=== PATIENT | female | born 1970 | race Caucasian/White ===

== ENCOUNTER 2016-11-09 07:19 | Emergency (ER) | payer OTHER ==
[2016-11-09 07:24] VITALS: RESP 16; TEMP 97.7; O2SAT 98
--- NOTE | 2016-11-09 07:25 | EDPHY ---
H & P Stated Complaint: Right lower quad pain since this am Time Seen by Provider: 11/09/16 07:25 - Medical/Surgical History Hx Asthma: No Hx Chronic Respiratory Disease: No Hx Diabetes: No Hx Cardiac Disease: No Hx Renal Disease: No Hx Cirrhosis: No Hx Alcoholism: No Hx HIV/AIDS: No Hx Splenectomy or Spleen Trauma: No Other PMH: healthy. no abd surgeries in past - Social History Smoking Status: Never smoked Constitutional: Initial Vital Signs Temperature (C) 36.5 C 11/09/16 07:21 Heart Rate 78 11/09/16 07:21 Respiratory Rate 16 11/09/16 07:21 Blood Pressure 104/87 H 11/09/16 07:21 O2 Sat (%) 98 11/09/16 07:21 O2 Delivery Mode Room Air Allergies/Adverse Reactions: Penicillins Allergy (Verified 11/09/16 07:57) Home Medications: Medication Instructions Recorded HYDROcodone/APAP 10/325 [Anderson 1 - 2 each PO Q4-6PRN PRN #20 tab 11/09/16 10/325] Ibuprofen [Motrin] 800 mg PO Q8 #20 tab 11/09/16 Medical Decision Making - Diagnostics Imaging Results: Imaging Impressions Abdomen Ultrasound 11/09/16 07:32 Impression: Difficult to exclude tip appendicitis, although the patient does have a good alternative reason for right lower quadrant pain considering her pelvic sonogram. Results discussed with Dr. Phillip Green. Pelvic/Renal Ultrasound 11/09/16 07:32 Impression: 1. Collapsing, possibly leaking, hemorrhagic right ovarian cyst 2. Prominent pelvic veins. If this patient has chronic symptoms of pelvic venous congestion, then consultation with Dr. Josh Link of the interventional radiology service might be considered if the patient might be a candidate for gonadal vein embolization therapy. Results discussed with Dr. Phillip Green. Imaging: Discussed imaging studies w/ scallop binder Radiologist ED Course/Re-evaluation: CHIEF COMPLAINT: Lower abdominal pain. HISTORY OF PRESENT ILLNESS: The patient is a 46-year-old female who presents with sharp RLQ pain that began this morning upon waking. The pain has been intermittently radiating to her back and left abdomen. The pain is worsened with movement. It is waxing and waning and is currently moderate. She admits associated nausea and diaphoresis. She denies vomiting, fever, recent sickness, or other complaints. REVIEW OF SYSTEMS: A 10 point review of systems was performed and is negative with the exception of the elements mentioned in the history of present illness. PHYSICAL EXAM: HR, BP, O2 Sat, RR. Temp noted General Appearance: Alert, well hydrated, appropriate, and non-toxic appearing. Head: Atraumatic without scalp tenderness or obvious injury Eyes: Pupils equal, round, reactive to light and accommodation, EOMI, no trauma , no injection. Ears: Clear bilaterally, no perforation, normal landmarks Nose: Atraumatic, no rhinorrhea, clear. Throat: There is no erythema or exudates, no lesions, normal tonsils, mucus membranes moist. Neck: Supple, 2+ carotid upstroke, nontender, no lymphadenopathy. Respiratory: No retractions, no distress, no wheezes, and no accessory muscle use. Lungs are clear to auscultation bilaterally. Cardiovascular: Regular rate and rhythm, no murmurs, rubs, or gallops. Bilateral carotid, radial, dorsalis pedis, and posterior tibial pulses intact. Good capillary refill all extremities. Gastrointestinal: Abdomen is soft, non-distended, no masses, no rebound, no guarding, no peritoneal signs. Referred pain to RLQ with palpation of left abdomen. RLQ tenderness. Musculoskeletal: Normal active ROM of all extremities, atraumatic. Neurological: Alert, appropriate, and interactive. The patient has normal DTRs and non-focal cranial nerves, motor, sensory, and cerebellar exam. Skin: No rashes, good turgor, no nodules on palpation. Past medical history: Denies. Past surgical history: Denies. Family history: Non-contributory. Social history: . DIAGNOSTICS/PROCEDURES/CRITICAL CARE TIME: I independently reviewed the patient's imaging on the PACS system. Please see Imaging Results section for official radiologist report. DIFFERENTIAL DIAGNOSIS: The differential diagnosis for the patient's abdominal pain included but was not limited to ovarian cyst, pelvic inflammatory disease, ovarian torsion, urinary tract infection, ectopic , cholecystitis, and appendicitis. MEDICAL DECISION MAKIN-year-old female presents with sharp RLQ that began this morning. She has been nauseated and diaphoretic. The pain is worsened with movement. On exam she is quite tender in that area and has referred pain to the RLQ when I palpate the left side. I have high suspicion for appendicitis. Plan for Dr. Chamberlain, surgery, to consult on the patient. I have ordered a RLQ ultrasound. Labwork is unremarkable. 0847: Curbside read from the border patrol officer is right hemorrhagic cyst and possible early appendicitis. 0918: Ultrasound results conveyed to me by Dr. Quesada, radiology. He reports right hemorrhagic cyst with a small amount of free fluid in the pelvic. The appendix is well-visualized except for the tip. I think it is highly unlikely that she has 2 RLQ processes simultaneously. I do not feel that a CT is indicated at this time as the disadvantages outweigh the benefits. Further, she is not febrile, has no white count, and shows no other signs of infectious process, so appendicitis is unlikely. 0923: Reassessed patient. Discussed results of ultrasound with her. She understands to follow up with her PHOTOGRAPHY MANAGER for reevaluation. I have instructed her to use Ibuprofen for pain control. I offered Vicodin or Percocet but she declined. - Data Points Laboratory Results: Laboratory Results 11/09/16 07:35 11/09/16 07:35 11/09/16 11/09/16 11/09/16 08:13 07:35 07:35 WBC RBC Hgb Hct MCV MCH MCHC RDW Plt Count MPV Neut % (Auto) Lymph % (Auto) [place] % (Auto) Eos % (Auto) Baso % (Auto) Nucleat RBC Rel Count Absolute Neuts (auto) Absolute Lymphs (auto) Absolute Monos (auto) Absolute Eos (auto) Absolute Basos (auto) Absolute Nucleated RBC Immature Gran % Immature Gran # Sodium 142 mEq/L mEq/L (134-144) Potassium 4.2 mEq/L mEq/L (3.5-5.2) Chloride 107 mEq/L mEq/L (97-110) Carbon Dioxide 24 mEq/l mEq/l (22-31) Anion Gap 11 mEq/L mEq/L (8-16) BUN 22 mg/dL mg/dL (7-23) Creatinine 1.0 mg/dL mg/dL (0.6-1.0) Estimated GFR > 60 Glucose 97 mg/dL mg/dL (70-100) Calcium 9.2 mg/dL mg/dL (8.5-10.4) Beta HCG, Qual NEGATIVE Urine Color YELLOW Urine Appearance CLEAR Urine pH 5.0 (5.0-7.5) Ur Specific [place] 1.023 (1.002-1.030) Urine Protein NEGATIVE (NEGATIVE) Urine Ketones TRACE H (NEGATIVE) Urine Blood NEGATIVE (NEGATIVE) Urine Nitrate NEGATIVE (NEGATIVE) Urine Bilirubin NEGATIVE (NEGATIVE) Urine Urobilinogen NEGATIVE EU EU (0.2-1.0) Ur Leukocyte Esterase NEGATIVE (NEGATIVE) Urine Glucose NEGATIVE (NEGATIVE) 11/09/16 07:35 WBC 4.57 10^3/uL 10^3/uL (3.80-9.50) RBC 4.44 10^6/uL 10^6/uL (4.18-5.33) Hgb 14.4 g/dL g/dL (12.6-16.3) Hct 43.1 % % (38.0-47.0) MCV 97.1 fL fL (81.5-99.8) MCH 32.4 pg pg (27.9-34.1) MCHC 33.4 g/dL g/dL (32.4-36.7) RDW 12.1 % % (11.5-15.2) Plt Count 158 10^3/uL 10^3/uL (150-400) MPV 9.9 fL fL (8.7-11.7) Neut % (Auto) 44.7 % % (39.3-74.2) Lymph % (Auto) 38.9 % % (15.0-45.0) [place] % (Auto) 10.5 % % (4.5-13.0) Eos % (Auto) 4.8 % % (0.6-7.6) Baso % (Auto) 0.9 % % (0.3-1.7) Nucleat RBC Rel Count 0.0 % % (0.0-0.2) Absolute Neuts (auto) 2.04 10^3/uL 10^3/uL (1.70-6.50) Absolute Lymphs (auto) 1.78 10^3/uL 10^3/uL (1.00-3.00) Absolute Monos (auto) 0.48 10^3/uL 10^3/uL (0.30-0.80) Absolute Eos (auto) 0.22 10^3/uL 10^3/uL (0.03-0.40) Absolute Basos (auto) 0.04 10^3/uL 10^3/uL (0.02-0.10) Absolute Nucleated RBC 0.00 10^3/uL 10^3/uL (0-0.01) Immature Gran % 0.2 % % (0.0-1.1) Immature Gran # 0.01 10^3/uL 10^3/uL (0.00-0.10) Sodium Potassium Chloride Carbon Dioxide Anion Gap BUN Creatinine Estimated GFR Glucose Calcium Beta HCG, Qual Urine Color Urine Appearance Urine pH Ur Specific [place] Urine Protein Urine Ketones Urine Blood Urine Nitrate Urine Bilirubin Urine Urobilinogen Ur Leukocyte Esterase Urine Glucose Medications Given: Discontinued Medications Hydromorphone HCl (Dilaudid) 0.5 mg IVP EDNOW ONE Stop: 11/09/16 07:32 Last Admin: 11/09/16 07:46 Dose: 0.5 mg Sodium Chloride (Ns) 1,000 mls @ 0 mls/hr IV ONCE ONE PRN Reason: Wide Open Stop: 11/09/16 07:32 Last Admin: 11/09/16 07:46 Dose: 1,000 mls Ondansetron HCl (Zofran) 4 mg IVP EDNOW ONE Stop: 11/09/16 07:32 Last Admin: 11/09/16 07:46 Dose: 4 mg Departure - Departure Disposition: Home, Routine, Self-Care Clinical Impression: Hemorrhagic ovarian cyst Condition: Good Instructions: Ovarian Cyst (ED), Ruptured Ovarian Cyst (ED) Additional Instructions: Take 600mg Ibuprofen every 6-8 hours as needed for pain. Call Dr. Smyth on Friday to set up a follow up appointment. Return if your abdominal pain does not subside, it worsens, or you experience any other serious worsening of condition. Referrals: Scott Johnson MD [Primary Care Provider] - As per Instructions Kasey Smyth MD [Medical Doctor] - As per Instructions Prescriptions: HYDROcodone/APAP 10/325 [Anderson 10/325] 1 - 2 each PO Q4-6PRN PRN #20 tab PRN Reason: Pain, Moderate Ibuprofen [Motrin] 800 mg PO Q8 #20 tab Report Scribed for: Phillip Green Report Scribed by: Bo Oquendo Date of Report: 11/09/16 Time of Report: 07:31
[2016-11-09] MEDS ORDERED: HYDROmorphONE/DILAUDID 1 MG/ML SYR IVP ONE (07:31)
[2016-11-09] MEDS ORDERED: ONDANSETRON 4 MG/2 ML VIAL IVP ONE (07:31)
[2016-11-09] MEDS ORDERED: NS 1,000 ML IV ONE (07:31)
[2016-11-09 07:49] LABS: % IMMATURE GRANULYOCYTES 0.2 % (0.0-1.1); ABSOLUTE IMMATURE GRANULOCYTES 0.01 10^3/uL (0.00-0.10); ADD DIFF? NO; ADD MORPH? NO; ADD SCAN? NO; ATYPICAL LYMPHOCYTE FLAG 0 (0-99); FRAGMENT RBC FLAG 0 (0-99); HEMATOCRIT 43.1 % (38.0-47.0); HEMOGLOBIN 14.4 g/dL (12.6-16.3); LEFT SHIFT FLG 0 (0-99); LIPEMIA HEMOLYSIS FLAG 80 (0-99); MEAN CELL HEMOGLOBIN 32.4 pg (27.9-34.1); MEAN CELL HEMOGLOBIN CONCENTR. 33.4 g/dL (32.4-36.7); MEAN CELL VOLUME 97.1 fL (81.5-99.8); MEAN PLATELET VOLUME 9.9 fL (8.7-11.7); PLATELET CLUMPS FLAG 10 (0-99); PLATELET COUNT 158 10^3/uL (150-400); RED BLOOD CELL COUNT 4.44 10^6/uL (4.18-5.33); RED CELL DISTRIBUTION WIDTH 12.1 % (11.5-15.2)
[2016-11-09 08:11] LABS: CARBON DIOXIDE 24 mEq/l (22-31); CHLORIDE 107 mEq/L (97-110); POTASSIUM 4.2 mEq/L (3.5-5.2); SODIUM 142 mEq/L (134-144)
[2016-11-09 08:12] LABS: ANION GAP 11 mEq/L (8-16); CALCIUM 9.2 mg/dL (8.5-10.4); GLOMERULAR FILTRATION RATE > 60; GLUCOSE 97 mg/dL (70-100)
[2016-11-09 08:28] LABS: COLOR YELLOW; LEUKOCYTE ESTERASE,URINE NEGATIVE (NEGATIVE); NITRITE,URINE NEGATIVE (NEGATIVE)
[2016-11-09 09:50] VITALS: BP 108/67; PULSE 58
== END 2016-11-09 09:49 | disposition home or self-care (01) ==
DX: N83.209 Unspecified ovarian cyst, unspecified side (principal)
CPT/HCPCS: 96374; J1170; J2405

== ENCOUNTER → 2017-01-22 | Outpatient (CLI) | payer OTHER | LOC: FIMAGING 09:32 | PROVIDERS: ATTEND Obstetrics & Gynecology | DX: Z12.31 Encounter for screening mammogram for malignant neoplasm of breast (principal) | CPT/HCPCS: G0202 ==